=== PATIENT | female | born 1950 | race Caucasian/White ===

== ENCOUNTER 2016-07-23 13:18 | Outpatient (CLI) | payer MEDICARE, BC, OTHER | END 2016-07-23 13:19 | disposition home or self-care (01) | DX: E11.65 Type 2 diabetes mellitus with hyperglycemia (principal) ==

== ENCOUNTER 2016-10-18 09:56 | Outpatient (CLI) | payer MEDICARE, BC, OTHER ==
--- NOTE | 2016-10-19 07:51 | XRAY Report ---
STANDING VIEWS LEFT KNEE: 10/18/2016 CLINICAL HISTORY: Pain. FINDINGS: Standing AP view of the left knee and lateral standing view of the left knee demonstrate n o knee effusion. No significant soft tissue calcification. Minor spurring is seen of the tibial spine. Minor spurring is seen along the lateral aspect of the t ibial plateau. Mild spurring is noted along the posterior aspect of the patella. Moderate degree of narrowing of the patellofemoral joint is noted. No significant narrowing of the knee joint is seen. There is a subtle relative radiolucency noted in the head of the left fibula with a minimal alterat ion in the trabecular pattern of the proximal fibular shaft. Considering that there is no definite l ytic change seen, the finding probably represents a normal variation. If patient persists to have pa in, especially along the lateral aspect of the left knee in the area of the head of the left fibula, then a repeat x-ray of the left knee could be obtained in 3-6 months for further evaluation of this f inding. IMPRESSION: 1. MINOR OSTEOARTHRITIS OF THE LEFT KNEE ESPECIALLY INVOLVING THE PATELLOFEMORAL JOINT. 2. MINIMAL RELATIVE OSTEOPOROSIS IS SEEN IN THE HEAD OF THE LEFT FIBULA. THIS IS NONSPECIFIC. IT M AY BE A RESULT OF BENIGN DISUSE OSTEOPOROSIS. IF PATIENT HAS PERSISTENT CLINICAL SYMPTOMS IN THIS RE GION, A REPEAT X-RAY VIEW OF THE LEFT KNEE COULD BE OBTAINED IN 3-6 MONTHS TO FURTHER CONFIRM THIS BE NIGN ETIOLOGY. JOB #: [id number] EXT JOB #:[id number]
== END 2016-10-18 09:57 | disposition home or self-care (01) ==
LOC: DI 09:56
PROVIDERS: ATTEND Family Medicine
DX: M17.12 Unilateral primary osteoarthritis, left knee (principal); M81.0 Age-related osteoporosis without current pathological fracture

== ENCOUNTER 2016-10-25 10:11 | Outpatient (CLI) | payer MEDICARE, BC, OTHER ==
[2016-10-25 13:42] LABS: HEMOGLOBIN A1C 1.25 g/dL
[2016-10-25 13:43] LABS: ALBUMIN/GLOBULIN RATIO 0.8 (1.0-2.2); BILIRUBIN,TOTAL 0.4 mg/dL (0.2-1.0); BUN - BLOOD UREA NITROGEN 30 mg/dL (6-20); CALCIUM 9.2 mg/dL (8.5-10.3); CARBON DIOXIDE - CO2 25 mmol/L (21-32); CHLORIDE 106 mmol/L (101-111); CHOL/HDL RATIO 6.1 (<4.4); CHOLESTEROL 188 mg/dL; CREATININE 1.3 mg/dL (0.4-1.0); GFR - MDRD 41 (>89); GLUCOSE 207 mg/dL (70-100); HDL CHOLESTEROL 31 mg/dL; LDL/HDL RATIO 3.2 (<4.4); SODIUM 139 mmol/L (135-145); TRIGLYCERIDES 288 mg/dL; VLDL CHOLESTEROL 58 mg/dL
== END 2016-10-25 10:12 | disposition home or self-care (01) ==
LOC: LAB.WCP 10:11
PROVIDERS: ATTEND Family Medicine
DX: E11.65 Type 2 diabetes mellitus with hyperglycemia (principal)
CPT/HCPCS: 36415; 80053; 80061; 83036

== ENCOUNTER 2017-01-07 09:26 | Outpatient (CLI) | payer MEDICARE, BC, OTHER ==
--- NOTE | 2017-01-07 13:29 | DEXA Report ---
DEXA SCAN: 01/07/2017 CLINICAL INDICATION: Postmenopausal. TECHNIQUE: Dual energy x-ray absorptiometry (DXA) was performed on a [employer] system. Regions measured are the AP spine, femoral neck, and, if needed, forearm. COMPARISON: None. In accordance with the International Society for Clinical Densitometry (ISCD) guidelines, data from previous exams may be reanalyzed using current recommendations and techniques. This is done to allow a more accurate basis for comparison with the current study. FINDINGS The data for the lumbar spine is as follows: REGION BMD (g/cm/cm) T-SCORE Z-SCORE L1 1.356 1.9 2.7 L2 1.467 2.2 3.0 L3 1.421 1.8 2.6 L4 1.398 1.6 2.4 TOTAL 1.409 1.9 2.7 NOTE: All evaluable vertebrae are used for classification. The data for the hip is as follows: REGION BMD (g/cm/cm) T-SCORE Z-SCORE Neck 0.897 -1.0 0.0 TOTAL 0.957 -0.4 0.3 NOTE: The femoral neck or total proximal femur, whichever is lowest, is used for classification. IMPRESSION: THE WHO CLASSIFICATION BASED ON THE INTERNATIONAL REFERENCE STANDARD IS NORMAL. THE FRACTURE RISK IS NOT INCREASED. RECOMMENDATION: Patients with diagnosis of osteoporosis or osteopenia should have regular bone mineral density assessment. For those eligible for Medicare, routine testing is allowed once every 2 years. Testing frequency can be increased for patients who have rapidly progressing disease or for those who are receiving medical therapy to restore bone mass. COMMENT: World Health Organization (WHO) definitions for osteoporosis and osteopenia: NORMAL BMD: T-score at -1.0 or higher, fracture risk is low. OSTEOPENIA BMD: T-score between -1.0 and -2.5, fracture risk is increased. OSTEOPOROSIS BMD: T-score at -2.5 or lower, fracture risk high. National Osteoporosis Foundation recommends: 1. Obtain adequate dietary calcium (at least 1200 mg per day) and vitamin D (400 -800 international units per day). 2. Participate, as appropriate, in regular weightbearing and muscle- strengthening exercise. 3. Avoid tobacco use and reduce alcohol and caffeine intake. 4. For more detailed information see the website at www.NOF.org. MTDD
== END 2017-01-07 09:27 | disposition home or self-care (01) ==
LOC: DI 09:26
PROVIDERS: ATTEND Family Medicine
DX: Z78.0 Asymptomatic menopausal state (principal)
CPT/HCPCS: 77080

== ENCOUNTER 2017-01-21 09:54 | Outpatient (CLI) | payer MEDICARE, BC, OTHER ==
--- NOTE | 2017-01-26 12:41 | Mammography Report ---
DIGITAL BILATERAL SCREENING MAMMOGRAM: 01/21/2017 COMPARISON: Mammogram 12/26/2015 BREAST DENSITY: A1 TECHNIQUE: Routine CC and MLO projections were obtained of the breasts. FINDINGS: Parenchymal tissue within the breasts is predominantly fatty replaced. There are no domina nt masses, suspicious microcalcifications, or secondary signs of malignancy. In comparison to the pre vious studies, there are no significant changes. IMPRESSION: NO MAMMOGRAPHIC EVIDENCE OF MALIGNANCY. NO SIGNIFICANT INTERVAL CHANGES. RECOMMENDATION: Screening mammography is recommended annually. BIRADS category 1 - negative. STANDARD QUALIFYING STATEMENTS 1. This examination was reviewed with the aid of Computed-Aided Detection (CAD). 2. A negative or benign imaging report should not delay biopsy if clinically suspicious findings are present. Consider surgical consultation if warranted. More than 5% of cancers are not identified by i maging. 3. Dense breasts may obscure an underlying neoplasm. JOB #: [id number] EXT JOB #:[id number]
== END 2017-01-21 09:55 | disposition home or self-care (01) ==
LOC: DI.N 09:54
PROVIDERS: ATTEND Family Medicine
DX: Z12.31 Encounter for screening mammogram for malignant neoplasm of breast (principal)
CPT/HCPCS: 77067

== ENCOUNTER 2017-01-27 14:23 | Outpatient (CLI) | payer MEDICARE, BC, OTHER ==
[2017-01-27 13:22] LABS: CALCIUM 8.8 mg/dL (8.5-10.3); CREATININE 1.5 mg/dL (0.4-1.0); POTASSIUM 3.6 mmol/L (3.5-5.0)
[2017-01-27 13:45] LABS: HEMOGLOBIN A1C 1.14 g/dL
== END 2017-01-27 14:24 | disposition home or self-care (01) ==
LOC: LAB.WCP 14:23
PROVIDERS: ATTEND Family Medicine
DX: E11.65 Type 2 diabetes mellitus with hyperglycemia (principal)
CPT/HCPCS: 36415; 80048; 83036